=== PATIENT | female | born 1965 | race Caucasian/White ===

== ENCOUNTER 2024-09-24 11:55 | Emergency (ER) | payer OTHER, SELFPAY ==
[2024-09-24 12:00] VITALS: BP 104/59
[2024-09-24 12:01] VITALS: BMI 17.3
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
[2024-09-24] MEDS: TYLENOL 650 MG PO (12:41)
== END 2024-09-24 13:02 | disposition home or self-care (01) ==
LOC: EMR 11:55
PROVIDERS: EMERGENCY PHYSICIAN Student in an Organized Health Care Education/Training Program
DX: F10.129 Alcohol abuse with intoxication, unspecified (principal); Y90.9 Presence of alcohol in blood, level not specified; V49.40XA Driver injured in collision with unspecified motor vehicles in traffic accident, initial encounter
CPT/HCPCS: 99282